=== PATIENT | female | born 2000 | race Two or more races ===

== ENCOUNTER 2021-12-15 21:20 | Emergency (ER) | payer SELFPAY ==
[~2021-12-15] VITALS: Ht 157.5 cm; Wt 54.5 kg
[2021-12-15 21:22] VITALS: BP 132/67
== END 2021-12-16 01:34 | disposition left against medical advice (07) ==
LOC: M ED 21:20
DX: Z53.21 Procedure and treatment not carried out due to patient leaving prior to being seen by health care provider (principal)